=== PATIENT | female | born 2005 | race Caucasian/White ===

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

== ENCOUNTER 2024-03-09 12:35 | Emergency (ER) | payer OTHER ==
[2024-03-09 12:53] VITALS: BP 122/88; O2SAT 98
--- NOTE | 2024-03-09 13:00 | ED Physician Documentation ---
PD HPI HEENT - Stated complaint Stated Complaint: CONGESTION,BILAT EYE DISCHARGE/ITCHY - Chief complaint Chief Complaint: Heent - History obtained from History obtained from: Patient, Family - Additional information Additional information: She has been sick for 11 days, a lot of sinus pressure, on and off ear pressure, more recently has developed red eyes with purulent drainage in the mornings. No visual deficit. She has a cough but not short of breath. No fevers. Dad requests a dose of steroids for her symptomatology. 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 No possibility of . PD PAST MEDICAL HISTORY - Past Medical History Past Medical History: No - Past Surgical History Past Surgical History: Yes HEENT: Tonsil/Adenoidectomy - Present Medications Home Medications: Ambulatory Orders Medication Instructions Recorded Confirmed Amoxicillin 500 mg PO TID #30 cap 03/09/24 Cetirizine [ZyrTEC] 10 mg PO DAILY 03/09/24 03/09/24 Erythromycin Base [Erythromycin 1 appful OP 5XD 7 Days #1 gm 03/09/24 Ophthalmic Ointment] Pseudoephedrine [Sudafed] 30 mg PO Q6H PRN 03/09/24 03/09/24 guaiFENesin [Mucinex] 600 mg PO BID 03/09/24 03/09/24 - Allergies Allergies/Adverse Reactions: Allergies Allergy/AdvReac Type Severity Reaction Status Date / Time No Known Drug Allergies Allergy Verified 03/09/24 12:45 - Social History Does the pt smoke?: No Smoking Status: Never smoker Does the pt drink ETOH?: No Does the pt have substance abuse?: No - Immunizations Immunizations are current?: Yes PD ED PE NORMAL - Vitals Vital signs reviewed: Yes - General General: Alert and oriented X 3, No acute distress - HEENT HEENT: PERRL, EOMI, Other (TMs are normal as is her oropharynx. She is tender over the left maxillary sinus. No cervical adenopathy.) - Neck Neck: Supple, no meningeal sign - Respiratory Respiratory: No respiratory distress, Clear bilaterally - Abdomen Abdomen: Non tender - Neuro Neuro: Alert and oriented X 3 Results - Vitals Vitals: Vital Signs - 24 hr 03/09/24 12:39 Temperature 36.3 C L Heart Rate 102 H Respiratory 15 Rate Blood Pressure 122/88 H O2 Saturation 98 Oxygen O2 Source Room air PD Medical Decision Making - ED course ED course: Symptomatology would strongly point to a viral etiology. That said given the length of illness IDSA guidelines would recommend antibiotic therapy for potential sinusitis. The patient and family were counseled as to the diagnosis and need for follow- up. I counseled the patient with regard to signs and symptoms that would necessitate an urgent reevaluation in the emergency department. They understand they are welcome to return at any time if worse or if not improving as expected. This document was made in part using voice recognition software. While efforts are made to proofread this documents, sound alike and grammatical errors may occur. Departure - Departure Disposition: 01 Home, Self Care Clinical Impression: Sinusitis Qualifiers: Sinusitis location: maxillary Chronicity: acute Recurrence: non-recurrent Qualified Code(s): J01.00 - Acute maxillary sinusitis, unspecified Conjunctivitis Qualifiers: Conjunctivitis type: acute Acute conjunctivitis type: unspecified Laterality: bilateral Qualified Code(s): H10.33 - Unspecified acute conjunctivitis, bilateral Condition: Good Record reviewed to determine appropriate education?: Yes Instructions: ED Sinusitis Abx Tx Prescriptions: Amoxicillin 500 mg PO TID #30 cap Erythromycin Base [Erythromycin Ophthalmic Ointment] 1 appful OP 5XD 7 Days #1 gm Comments: I sent your prescription electronically to the [facility] in [place]. Follow-up with your doctor in a week if not improved. Return for new or worsening symptoms.
[2024-03-09] MEDS: CHERRY SYRUP 10 ML UDC PO ONE (13:12)
[2024-03-09] MEDS: DEXAMETHASONE 10 MG/ML VIAL PO STA (13:12)
== END 2024-03-09 13:21 | disposition home or self-care (01) ==
LOC: ED 12:35
DX: J01.00 Acute maxillary sinusitis, unspecified (principal); H10.33 Unspecified acute conjunctivitis, bilateral
CPT/HCPCS: 99283; A9270